=== PATIENT | female | born 1995 | race American Indian/Alaskan Native ===

== ENCOUNTER 2017-09-29 15:32 | Emergency (ER) | payer MEDICAID ==
[2017-09-29 15:42] VITALS: BMI 24.1
[2017-09-29 16:08] VITALS: RESP 18; TEMP 98
--- NOTE | 2017-09-29 16:17 | ED PDOC ---
Arrival/HPI - General Chief Complaint: Abdominal Pain Time Seen by Provider: 09/29/17 15:44 Historian: Patient - History of Present Illness Narrative History of Present Illness (Text): 09/29/17 16:03 22yr old female presents today with 4 day history of lower abdominal pain. pt denies fever/chills. c/o occasional nausea. pt denies diarrhea. no cp or sob. pt states her LMP was in july. pt states pain is crampy in nature. pt c/o pain in the lower back. no medications have been taken at home. pt denies fever/ chills. denies urinary symptoms. denies vaginal discharge. pt states she noticed just a small amount of bleeding last nght. denies any pain currently. Time/Duration: Other (4 days) Past Medical History - Provider Review Nursing Documentation Reviewed: Yes - Travel History Have you recently traveled outside [place] w/in the past 3 mons?: No - Psychiatric Hx Substance Use: No - Anesthesia Hx Anesthesia: No Family/Social History - Physician Review Nursing Documentation Reviewed: Yes Family/Social History: Unknown Family HX Smoking Status: Never Smoked Hx Alcohol Use: Yes Frequency of alcohol use: Socially Hx Substance Use: No Allergies/Home Meds Allergies/Adverse Reactions: Allergies No Known Allergies Allergy (Verified 09/29/17 15:42) Review of Systems - Review of Systems Constitutional: absent: Fatigue, Fevers Respiratory: absent: SOB, Cough Cardiovascular: absent: Chest Pain, Palpitations Gastrointestinal: Abdominal Pain, Nausea, Vomiting. absent: Constipation, Diarrhea Genitourinary Female: Vaginal Bleeding. absent: Dysuria, Frequency, Hematuria, Vaginal Discharge Musculoskeletal: Back Pain. absent: Arthralgias, Neck Pain Skin: absent: Rash, Pruritis Neurological: absent: Headache, Dizziness Psychiatric: absent: Anxiety, Depression, Suicidal Ideation Physical Exam Vital Signs Reviewed: Yes Vital Signs Temp Pulse Resp BP Pulse Ox 09/29/17 18:47 80 110/70 09/29/17 17:40 94 H 18 112/71 97 09/29/17 15:42 98 F 103 H 18 114/72 100 Temperature: Afebrile Blood Pressure: Normal Pulse: Tachycardic Respiratory Rate: Normal Appearance: Positive for: Well-Appearing, Non-Toxic, Comfortable Pain Distress: None Mental Status: Positive for: Alert and Oriented X 3 - Systems Exam Head: Present: Atraumatic Mouth: Present: Moist Mucous Membranes Neck: Present: Normal Range of Motion Respiratory/Chest: Present: Clear to Auscultation, Good Air Exchange. No: Respiratory Distress, Accessory Muscle Use Cardiovascular: Present: Regular Rate and Rhythm, Normal S1, S2. No: Murmurs Abdomen: Present: Normal Bowel Sounds. No: Tenderness, Distention, Peritoneal Signs, Rebound, Guarding Genitourinary/Pelvic Exam: Present: Normal External Genitalia, Cervical os Closed, Other (chaparoned by perfecto collins RN). No: Vaginal Discharge, Vaginal Bleeding, Vaginal Lesions, Adenexal Tenderness, Adenexal Mass, Cervical Motion Tendernes, Odor Back: Present: Normal Inspection. No: CVA Tenderness, Midline Tenderness, Paraspinal Tenderness Upper Extremity: Present: Normal ROM Lower Extremity: Present: Normal ROM Neurological: Present: GCS=15 Skin: Present: Warm, Dry, Normal Color. No: Rashes Psychiatric: Present: Alert, Oriented x 3 Medical Decision Making ED Course and Treatment: 09/29/17 16:18 Patient is nontoxic well appearing in no distress. vital signs are stable. CBC: wnl CMP: wnl Beta hC TYPE AND SCREEN: B+ Urinalysis: + leukocytes 25-30 wbcs Ultrasound: FINDINGS: UTERUS: The uterus is anteverted measuring approximately 8.65 x 6.4 x 8.7 cm. There is an apparent single living intrauterine gestation Measurements: Gestational sac: MSD = 2.48 cm = 7 weeks 1 day Yolk sac: 0.24 cm pole: CRL = 1.64 cm = 8 weeks 0 days Heart motion: 173 BPM Average ultrasound age: 7 weeks 4 days 0 weeks 4 days NATALIE based on average ultrasound age: 0805/14/2018 ENDOMETRIUM: NA CERVIX: Cervix measures approximately 4.0 cm. RIGHT OVARY: Right ovary measures approximately 5.3 x 3.0 x 4.4 cm and contains a relatively large cyst measuring approximately 4.0 x 3.8 x 3.2 cm. No solid mass. Normal Flow. LEFT OVARY: Left ovary measures approximate 3.2 x 1.8 x 3.0 cm. No solid mass. Normal flow. FREE FLUID: No gross free fluid seen within cul de sac. OTHER FINDINGS: None IMPRESSION: Single living intrauterine gestation estimated at approximately 7 weeks 4 days 0 weeks 4 days. Heart rate documented at 173 BPM Relatively large right ovarian cyst likely representing corpus luteum cyst of . Discussed all the results the patient. advised f/u with the fitness technician within the next 2 days. advised immediate return if symptoms worsen,persist or if new symptoms develop. advised started vitamins daily. Patient verbalizes understanding of discharge instructions and need for immediate followup. all aspects of this case were discussed the attending of record. Impression: threatened , UTI Tylenol every 4 hours as needed for pain Macrobid; 1 tablet twice daily x 10 days Take vitamins daily. Increase fluids Followup with the equal opportunity director within the next 2 days Return immediately if symptoms worsen persist or if new symptoms develop: High fevers, heavy bleeding, severe abdominal pain, vomiting, diarrhea, dizziness or weakness or any other concerning symptoms develop. - Lab Interpretations Lab Results: 09/29/17 16:06 09/29/17 16:06 Lab Results 09/29/17 16:06: WBC 8.6, RBC 4.27, Hgb 12.2, Hct 36.1, MCV 84.5, MCH 28.6, MCHC 33.8, RDW 11.9, Plt Count 291, MPV 8.6, Gran % 68.5 H, Lymph % (Auto) 24.0, [place] % (Auto) 6.8 H, Eos % (Auto) 0.6 L, Baso % (Auto) 0.1, Gran # 5.89, Lymph # 2.1, [place] # 0.6, Eos # 0.1, Baso # 0.01 09/29/17 16:06: Blood Type B POSITIVE, Antibody Screen Negative, BBK History Checked No verified bt 09/29/17 16:06: Beta HCG, Quant 74750.00 H 09/29/17 16:06: Sodium 139, Potassium 4.1, Chloride 105, Carbon Dioxide 24, Anion Gap 14, BUN 12, Creatinine 0.7, Est GFR ( Amer) > 60, Est GFR (Non- Af Amer) > 60, Random Glucose 85, Calcium 9.8, Total Bilirubin 0.3, AST 23, ALT 24, Alkaline Phosphatase 45, Total Protein 7.7, Albumin 4.2, Globulin 3.5, Albumin/Globulin Ratio 1.2, Lipase 196 09/29/17 16:06: Urine Color Yellow, Urine Appearance Cloudy, Urine pH 7.0, Ur Specific [place] 1.020, Urine Protein Trace H, Urine Glucose (UA) Negative, Urine Ketones Negative, Urine Blood Negative, Urine Nitrate Negative, Urine Bilirubin Negative, Urine Urobilinogen 0.2, Ur Leukocyte Esterase Large H, Urine RBC 0 - 2, Urine WBC 25 - 30, Ur Epithelial Cells 10 - 12, Urine Bacteria Many - RAD Interpretation Radiology Orders: 09/29/17 15:59 OB TRANSVAGINAL [US] Stat - Medication Orders Current Medication Orders: Discontinued Medications Nitrofurantoin Macrocrystals (Macrobid) 100 mg PO STAT STA Stop: 09/29/17 18:23 Last Admin: 09/29/17 18:46 Dose: 100 mg Disposition/Present on Arrival - Present on Arrival Any Indicators Present on Arrival: No History of DVT/PE: No History of Uncontrolled Diabetes: No Urinary Catheter: No History of Decub. Ulcer: No History Surgical Site Infection Following: None - Disposition Have Diagnosis and Disposition been Completed?: Yes Diagnosis: Threatened , Urinary tract infection Disposition: HOME/ ROUTINE Disposition Time: 18:22 Patient Plan: Discharge Condition: GOOD Discharge Instructions (ExitCare): Threatened Miscarriage (ED), Urinary Tract Infection in (ED) Additional Instructions: Tylenol every 4 hours as needed for pain Macrobid; 1 tablet twice daily x 10 days Take vitamins daily. Increase fluids Followup with the equal opportunity director within the next 2 days Return immediately if symptoms worsen persist or if new symptoms develop: High fevers, heavy bleeding, severe abdominal pain, vomiting, diarrhea, dizziness or weakness or any other concerning symptoms develop. Prescriptions: Nitrofurantoin Macrocrystals [Macrobid] 100 mg PO BID #20 cap Multivit/Folic Acid/I [ Plus] 1 tab PO DAILY #30 tab Referrals: Homero Mcclure DO [Staff Provider] - [facility] [[facility]] - Follow up with primary [facility] [place] [Outside] - Follow up with primary Forms: [employer] (Romansh), WORK NOTE
[2017-09-29 16:30] LABS: BASO # 0.01 K/mm3 (0.0-2.0); BASO % 0.1 % (0.0-3.0); EOS # 0.1 (0.0-0.7); EOS % 0.6 % (1.5-5.0); GRAN # 5.89 (1.4-6.5); GRAN % 68.5 % (50.0-68.0); HEMOGLOBIN 12.2 g/dL (12.0-16.0); LYMPH # 2.1 (1.2-3.4); MEAN CELL VOLUME 84.5 fl (80.0-105.0); MEAN CORPUSCULAR HEMOGLOBIN 28.6 pg (25.0-35.0); MEAN CORPUSCULAR HGB CONC 33.8 g/dl (31.0-37.0); MEAN PLATELET VOLUME 8.6 fl (7.0-11.0); MONO # 0.6 (0.1-0.6); MONO % 6.8 % (1.0-6.0); RBC 4.27 10^6/uL (3.5-6.1); RED CELL DISTRIBUTION WIDTH 11.9 % (11.5-14.5); URINE BILIRUBIN NEGATIVE (NEGATIVE); URINE BLOOD NEGATIVE (NEGATIVE); URINE GLUCOSE (UA) NEGATIVE (NEGATIVE); URINE LEUKOCYTE ESTERASE LARGE Leu/uL (NEGATIVE); URINE NITRATE NEGATIVE (NEGATIVE); URINE PROTEIN TRACE mg/dL (<30 mg/dL); URINE UROBILINOGEN 0.2 E.U./dL (<1 E.U./dL); WHITE BLOOD COUNT 8.6 10^3/ul (4.5-11.0)
[2017-09-29 16:31] LABS: ALB/GLOB RATIO 1.2 (1.1-1.8); ALBUMIN 4.2 g/dL (3.0-4.8); ALT/SGPT 24 U/L (7-56); AST/SGOT 23 U/L (14-36); BLOOD UREA NITROGEN 12 mg/dL (7-21); CALCIUM 9.8 mg/dL (8.4-10.5); GFR AFRICAN-AMERICAN > 60; GFR NON-AFRICAN AMERICAN > 60; LIPASE 196 U/L (23-300)
[2017-09-29 16:34] LABS: URINE APPEARANCE CLOUDY (CLEAR); URINE COLOR YELLOW (YELLOW)
[2017-09-29 17:13] LABS: URINE RBC 0 - 2 /hpf (0-2); URINE WBC 25 - 30 /hpf (0-6)
[2017-09-29 17:14] LABS: URINE BACTERIA MANY (NEG)
--- NOTE | 2017-09-29 17:20 | US ---
HISTORY: Pain. Positive preg test COMPARISON: No prior the TECHNIQUE: Transabdominal/transvaginal sonographic evaluation of the pelvis performed. FINDINGS: UTERUS: The uterus is anteverted measuring approximately 8.65 x 6.4 x 8.7 cm. There is an apparent single living intrauterine gestation Measurements: Gestational sac: MSD = 2.48 cm = 7 weeks 1 day Yolk sac: 0.24 cm pole: CRL = 1.64 cm = 8 weeks 0 days Heart motion: 173 BPM Average ultrasound age: 7 weeks 4 days 0 weeks 4 days NATALIE based on average ultrasound age: 0805/14/2018 ENDOMETRIUM: NA CERVIX: Cervix measures approximately 4.0 cm. RIGHT OVARY: Right ovary measures approximately 5.3 x 3.0 x 4.4 cm and contains a relatively large cyst measuring approximately 4.0 x 3.8 x 3.2 cm. No solid mass. Normal flow. LEFT OVARY: Left ovary measures approximate 3.2 x 1.8 x 3.0 cm. No solid mass. Normal flow. FREE FLUID: No gross free fluid seen within cul de sac. OTHER FINDINGS: None IMPRESSION: Single living intrauterine gestation estimated at approximately 7 weeks 4 days 0 weeks 4 days. Heart rate documented at 173 BPM Relatively large right ovarian cyst likely representing corpus luteum cyst of .
[2017-09-29 17:40] VITALS: O2SAT 97
[2017-09-29 18:47] VITALS: BP 110/70; PULSE 80
== END 2017-09-29 18:47 | disposition home or self-care (01) ==
LOC: MERGE 15:32 → ED 15:32
DX: O20.0 Threatened abortion (principal); O23.41 Unspecified infection of urinary tract in pregnancy, first trimester; Z3A.01 Less than 8 weeks gestation of pregnancy